=== PATIENT | male | born 1990 | race Caucasian/White ===

== ENCOUNTER 2017-07-18 02:12 | Emergency (ER) | payer BC, SELFPAY | END 2017-07-18 07:30 | disposition home or self-care (01) | PROVIDERS: Emergency Provider Emergency Medicine; Visit Provider Emergency Medicine | DX: F10.120 Alcohol abuse with intoxication, uncomplicated (principal); I10 Essential (primary) hypertension; Y90.8 Blood alcohol level of 240 mg/100 ml or more; F17.210 Nicotine dependence, cigarettes, uncomplicated | CPT/HCPCS: 71010; 80053; 80305; 80329; 81001; 82550; 82553; 84484; 85025; 93005; 96365; 99283 ==

== ENCOUNTER 2021-08-11 13:11 | Emergency (ER) | payer BC, SELFPAY ==
[2021-08-11 14:10] VITALS: BP 119/78; PULSE 96; RESP 20; TEMP 37.4; O2SAT 98; BMI 25.7
--- NOTE | 2021-08-11 14:34 | HMH.EDUTC ---
[facility] [place] Clinical Impression: Acute bronchitis Qualifiers: Bronchitis organism: unspecified organism Qualified Code(s): J20.9 - Acute bronchitis, unspecified Disposition: Home, Self-Care Condition on Discharge: Good Instructions: Acute Bronchitis, DI for Acute Bronchitis, DI for COVID-19 (Suspected or Confirmed ), Preventing the Spread of Coronavirus Discharge Instructions Additional Instructions: Drink plenty of fluids. Take tylenol or ibuprofen for pain or fever. Take the medications as directed. Follow up with your regular doctor. GO TO THE ER FOR ANY WORSENING SYMPTOMS Quarantine until you know the results of your covid-19 test. If it is positive, the health department should call you and give you further instructions about your length of Quarantine and other things. Notify your school or workplace of your results and follow their instructions regarding return to work/school. Don't start the oral steroids until tomorrow, since you had the shot here today. The cough medication (promethazine dm) will make you drowsy, so don't drive or operate heavy machinery after taking it. Prescriptions: Albuterol Sulfate [Albuterol Sulfate Hfa] 2 puffs IH Q6HP PRN 30 Days #1 each PRN Reason: Shortness Of Breath Transmission Status: Received by [id number] Promethazine/Dextromethorphan [Promethazine-Dm Syrup] 5 ml PO Q6HP PRN #240 ml PRN Reason: Cough Transmission Status: Received by [id number] Amoxicillin/Potassium Clav [Augmentin 875-125 Tablet] 1 tab PO Q12H 10 Days #20 tab Transmission Status: Received by [id number] methylPREDNISolone [Medrol] 4 mg PO DIRECTED 6 Days #21 packet Transmission Status: Received by [id number] Referrals: Rashad Benavidez [Primary Care Provider] - Forms: Work/School Release Time of Disposition: 16:32 Medical Decision Making - Medical Records Medical records reviewed: No: I reviewed the patient's medical records. - Dylan Inquiry Pt receiving controlled substance: No Vital Signs: 08/11/21 14:10 08/11/21 15:09 Temperature 99.4 F 99.4 F Temperature Source Oral Pulse Rate 96 H Pulse Rate [Right Brachial] 96 H Respiratory Rate 20 20 Blood Pressure 119/78 Blood Pressure [Right Arm] 119/78 Blood Pressure Mean [Right Arm] 91 Blood Pressure Source [Right Arm] Automatic Cuff Blood Pressure Position [Right Arm] Sitting 02 Sat by Pulse Oximetry 98 Oxygen Delivery Method Room Air - Lab Data Lab results reviewed: Yes: I reviewed the patient's lab results. Lab Results 08/11/21 14:33: Influenza Type A Ag Negative, Influenza Type B Ag Negative 08/11/21 16:04: Strep Scn Rapid Clinic Negative Orders (Tests/Meds): ED MEDICATIONS Discontinued Medications Generic Name Dose Route Start Last Admin Trade Name Maria Ines PRN Reason Stop Dose Admin Ceftriaxone Sodium 1 gm 08/11/21 15:31 08/11/21 16:00 Ceftriaxone 1gm Vial IM 08/11/21 15:32 1 gm ONCE ONE Administration Lidocaine HCl 0 ml 08/11/21 15:31 08/11/21 16:00 Lidocaine 1% 5ml Pf Vial IM 08/11/21 15:32 2 ml ONCE ONE Administration Methylprednisolone Sodium Succinate 125 mg 08/11/21 15:31 08/11/21 16:00 Methylprednisolone Sod Succ 125mg Vial IM 08/11/21 15:32 125 mg ONCE ONE Administration ORDERS Category Date Time Status Chest XR 2 view (NOT portable) [XR chest 2V] Stat Exams 08/11/21 15:09 Taken Full Resp Panel w/COVID ([facility]) Routine Lab 08/11/21 14:33 Received Strep Screen Confirmation Routine Micro 08/11/21 16:04 Received - Radiology Data #1 Image(s): Chest Image Reviewed: Yes I reviewed the patient's radiology image, Yes I have reviewed radiologist's interpretation [facility] [place] - General Stated complaint: fever, chills, body aches, diarrhea Time Seen by Provider: 08/11/21 14:34 - History of Present Illness Provider Complaint: He states that for the past 2 weeks he has had a nonproductive cough and h
[2021-08-11 14:40] LABS: Adenovirus,PCR Not Detected (NotDetected); Bordetella Pertussis Not Detected (NotDetected); Chlamydophila Pneumoniae, PCR Not Detected (NotDetected); Coronavirus 229E Not Detected (NotDetected); Coronavirus NL63 Not Detected (NotDetected); Coronavirus OC43 Not Detected (NotDetected); Coronovirus HKU1,PCR Not Detected (NotDetected); Human Metapneumovirus Not Detected (NotDetected); Influenza A, PCR Not Detected (NotDetected); Influenza AH1, 2009 Not Detected (NotDetected); Influenza AH1, PCR Not Detected (NotDetected); Influenza AH3,PCR Not Detected (NotDetected); Influenza B, PCR Not Detected (NotDetected); Mycoplasma Pneumoniae, PCR Not Detected (NotDetected); Parainfluenza 1, PCR Not Detected (NotDetected); Parainfluenza 2, PCR Not Detected (NotDetected); Parainfluenza 3, PCR Not Detected (NotDetected); Parainfluenza 4, PCR Not Detected (NotDetected); Respiratory Syncytial Virus Not Detected (NotDetected); Rhinovirus/Enterovirus Not Detected (NotDetected)
[2021-08-11 14:55] LABS: UTC Influenza A Antigen Negative (Negative); UTC Influenza B Antigen Negative (Negative)
[2021-08-11 15:09] VITALS: BP 119/78; PULSE 96; RESP 20; TEMP 37.4; O2SAT 98
--- NOTE | 2021-08-11 15:09 | XR_ITS ---
FINAL REPORT CLINICAL HISTORY: cough, congestion FINDINGS: 2 views of the chest were obtained . The heart is normal in size. The mediastinum is within normal limits. The lungs are clear. There is no pneumothorax. Osseous structures are unremarkable. IMPRESSION: No acute cardiopulmonary process. Reviewed, Interpreted and Dictated by Juventino Burden III, MD Transcribed by Melissa Lilly Authenticated by Juventino Burden III, MD on 08/11/2021 04:36:38 PM [facility]
[2021-08-11 16:28] LABS: UTC Strep Screen (Rapid) Negative (Negative)
[2021-08-11 20:07] LABS: Coronavirus 19, PCR Detected (NotDetected)
== END 2021-08-11 16:40 | disposition home or self-care (01) ==
PROVIDERS: Emergency Provider Nurse Practitioner Family; PCP Pediatrics
DX: J02.0 Streptococcal pharyngitis (principal); U07.1 COVID-19; Z87.891 Personal history of nicotine dependence
CPT/HCPCS: 71046; 87581; 87632; 87798; 87804; 87880; 96372; 99202; C9803; G0463; J0696; U0003; U0005

== ENCOUNTER 2021-09-22 12:34 | Emergency (ER) | payer BC, SELFPAY ==
[2021-09-22 12:35] VITALS: BP 165/105; PULSE 72; RESP 18; TEMP 37.1; O2SAT 97; BMI 25.7
[2021-09-22 12:47] VITALS: BMI 25.7
--- NOTE | 2021-09-22 12:48 | XR_ITS ---
FINAL REPORT TECHNIQUE: Single view chest CLINICAL HISTORY: chest pain COMPARISON: 08/11/2021 FINDINGS: A single view of the chest was obtained. The heart and mediastinum are within normal limits. The lungs are clear. There is no pneumothorax. Osseous structures are unremarkable. IMPRESSION: No acute cardiopulmonary process. Reviewed, Interpreted and Dictated by Donny Billings MD Transcribed by Melissa Lilly Authenticated by Donny Billings MD on 09/22/2021 01:38:30 PM [facility]
--- NOTE | 2021-09-22 12:57 | ECG_ITS ---
APPROVED REPORT Exam: Resting ECG HR:72 bpm ECG Measurements Heart Rate 72 AXES WI 174 P 49 QRSd 99 QRS 60 QT 363 T 52 QTc 386 Conclusion SINUS RHYTHM NORMAL ECG UNCONFIRMED REPORT Electronically signed by : Peterson Martini MD 09/23/2021 13:50:32
[2021-09-22 13:21] LABS: Basophils % 0.3 % (0.1-2.0); Eosinophils # 0.1 K/mm3 (0.0-0.4); Eosinophils % 0.8 % (0.1-12.0); Hematocrit 43.3 % (42.0-52.0); Hemoglobin 14.3 g/dL (14.1-18.0); Lymphocytes # 2.7 K/mm3 (0.7-4.5); Lymphocytes % 19.5 % (10-50); Mean Corpuscular Hemoglobin 31.4 pg (27.0-31.2); Mean Corpuscular Volume 95.2 fl (80-94); Mean Platelet Volume 7.7 fl (7.4-10.4); Monocytes # 0.5 K/mm3 (0.1-1.0); Monocytes % 3.9 % (1.7-9.3); Neutrophils # 10.3 K/mm3 (1.8-7.8); Neutrophils % 75.5 % (37.0-80.0); Platelet Count 331 K/mm3 (142-424); Red Blood Count 4.55 M/mm3 (4.60-6.20); Red Cell Distribution Width 12.9 % (11.5-17.5); White Blood Count 13.6 K/mm3 (4.8-10.8)
[2021-09-22 13:25] LABS: Chloride 102 mmol/L (98-107); Sodium 136 mmol/L (136-145)
[2021-09-22 13:28] LABS: Blood Urea Nitrogen 9 mg/dl (9-20); Calcium 8.7 mg/dl (8.4-10.2); Carbon Dioxide 30 mmol/L (22.0-30.0); Creatinine Clearance Estimated 159 mL/min (50-200); Estimated Glomerular Filt Rate 113 ml/min (>60); GFR (African American) 136 ML/MIN (>60); Glucose 96 mg/dl (74-100)
[2021-09-22 13:30] VITALS: BP 161/106; PULSE 77; RESP 12; O2SAT 96
[2021-09-22 13:42] LABS: Troponin I < 0.01 ng/ml (0.00-0.034)
--- NOTE | 2021-09-22 13:53 | HMH.EDDIZZ ---
ED Disposition Clinical Impression: Dyspepsia, Near syncope Disposition: Home, Self-Care Condition on Discharge: Good Instructions: Dizziness, Nonvertigo Referrals: Provider,Referral, MD [Primary Care Provider] - - Critical Care Critical Care Time: No Attestation: On 09/22/21, the high probability of a clinically significant, sudden or life threatening deterioration of the following system(s) required my full and direct attention, intervention and personal management. The time I documented below is in addition to time spent performing reported procedures but includes the following listed in this critical care notation. Medical Decision Making - Medical Records Medical records reviewed: Yes: I reviewed the patient's medical records. - Dylan Inquiry Pt receiving controlled substance: No Vital Signs: 09/22/21 12:35 Temperature 98.8 F Temperature Source Oral Pulse Rate [Left Radial] 72 Respiratory Rate 18 Blood Pressure [Right Arm] 165/105 H Blood Pressure Mean [Right Arm] 125 Blood Pressure Source [Right Arm] Automatic Cuff Blood Pressure Position [Right Arm] Sitting 02 Sat by Pulse Oximetry 97 Oxygen Delivery Method Room Air - Lab Data Lab Results 09/22/21 13:00: WBC 13.6 H, RBC 4.55 L, Hgb 14.3, Hct 43.3, MCV 95.2 H, MCH 31.4 H, MCHC 33.0, RDW 12.9, Plt Count 331, MPV 7.7, Neut % (Auto) 75.5, Lymph % (Auto) 19.5, [place] % (Auto) 3.9, Eos % (Auto) 0.8, Baso % (Auto) 0.3, Neut # (Auto) 10.3 H, Lymph # (Auto) 2.7, [place] # (Auto) 0.5, Eos # (Auto) 0.1, Baso # (Auto) 0.0 09/22/21 13:00: Sodium 136, Potassium 4.0, Chloride 102, Carbon Dioxide 30, Anion Gap 8.0, BUN 9, Creatinine 0.80, Estimated Creat Clear 159, Estimated GFR 113, Est GFR ( Amer) 136, Glucose 96, Calcium 8.7, Troponin I < 0.01 Result diagrams: 09/22/21 13:00 09/22/21 13:00 Orders (Tests/Meds): ED MEDICATIONS Discontinued Medications Generic Name Dose Route Start Last Admin Trade Name Freq PRN Reason Stop Dose Admin Ondansetron HCl 4 mg 09/22/21 13:01 09/22/21 13:21 Ondansetron 4mg/2ml Vial IV 09/22/21 13:02 4 mg ONCE ONE Administration ORDERS Category Date Time Status XR chest portable Stat Exams 09/22/21 12:48 Taken Troponin I Q3H Lab 09/22/21 16:00 Ordered Troponin I Q3H Lab 09/22/21 19:00 Ordered - Radiology Data #1 Image(s): Chest Image Reviewed: Yes I reviewed the patient's radiology results, Yes I reviewed the patient's radiology image, Yes I have reviewed radiologist's interpretation Preliminary Findings: Normal/NAD - ECG Data Tracing #1 I reviewed this ECG and interpreted as documented below: ECG initial impression date: 09/22/21 ECG initial impression time: 12:57 ECG normal with no acute: arrhythmias, ischemia, conduction abnormalities, chamber hypertrophy Normal Sinus Rhythm: Yes - Reevaluation(s) Time: 13:59 Reevaluation #1: On reevaluation, the patient is feeling much better. Blood pressure is improved. Patient's troponin is negative. Repeat neurologic exam is normal. Patient will need to follow-up with PCP in 48 hours. Given strict return precautions. Verbalized understanding. Medical Decision Narrative: 41-year-old male presenting with some subacute chest discomfort as well as some dizziness. The chest pain appears to be related to GERD. Subacute nature. Patient is low risk for acute coronary syndrome. He believe he also had a near syncopal episode. Patient currently slightly hypertensive. Other than that hemodynamically stable. Work-up initiated. Dizzy HPI - General Chief Complaint: Dizziness Stated Complaint: neck pain, heartburn Time Seen by Provider: 09/22/21 12:40 Mode of Arrival: Ambulatory Limitations: No Limitations Description of Symptoms (Recalled from ER Triage Doc. by RN): c/o dizziness, nausea, slurred speech today and heartburn for one week - History of Present Illness HPI Narrative: 31-year-old male presented to the emergen
[2021-09-22 14:00] VITALS: BP 139/89; PULSE 71; RESP 17; O2SAT 96
[2021-09-22 14:10] VITALS: BP 135/77; PULSE 70; RESP 19; TEMP 37.1; O2SAT 97
== END 2021-09-22 14:14 | disposition home or self-care (01) ==
PROVIDERS: Emergency Provider Emergency Medicine
DX: R55 Syncope and collapse (principal); R10.13 Epigastric pain; R07.89 Other chest pain
CPT/HCPCS: 71045; 80048; 84484; 85025; 93005; 99283; 99284; J2405